=== PATIENT | female | born 1950 | race Asian ===

== ENCOUNTER 2020-09-16 20:17 | Emergency (ER) | payer BC ==
[~2020-09-16] VITALS: Ht 157.5 cm; Wt 53.5 kg
[2020-09-16 21:33] LABS: BASOPHILS % (AUTO) 0.4 % (0.0-2.0); EOSINOPHILS % (AUTO) 1.7 % (0.0-6.0); HEMATOCRIT 44 % (33-45); HEMOGLOBIN 14.6 g/dL (11.5-14.8); LYMPHOCYTES # (AUTO) 1.7 /CMM (0.8-4.8); LYMPHOCYTES % (AUTO) 21.2 % (20.0-44.0); MEAN CORPUSCULAR HGB CONC 33 g/dl (31.0-36.0); MEAN CORPUSCULAR VOLUME 91 fL (82-100); MONOCYTES # (AUTO) 0.6 /CMM (0.1-1.30); MONOCYTES % (AUTO) 7.8 % (2.0-12.0); NEUTROPHILS # (AUTO) 5.5 /CMM (1.8-8.9); NEUTROPHILS % (AUTO) 68.9 % (43.0-81.0); PLATELET COUNT (AUTO) 228 /CMM (150-450); RED BLOOD CELL COUNT(AUTO) 4.85 MIL/uL (4.0-5.2); WHITE BLOOD COUNT (AUTO) 8.1 K/uL (4.3-11.0)
[2020-09-16] MEDS ORDERED: ACETAMINOPHEN ES 500 MG TABLET ONE (21:34)
[2020-09-16] MEDS ORDERED: AMLODIPINE BESYLATE 5 MG TABLET ONE (21:35)
[2020-09-16] MEDS: AMLODIPINE BESYLATE 5 MG TABLET PO ONE (21:46)
[2020-09-16] MEDS: ACETAMINOPHEN ES 500 MG TABLET PO ONE (21:46)
--- NOTE | 2020-09-16 21:46 | NUR ---
SPOKE TO MD REGARDING PT'S BP AND HR. MD STATED TO HOLD AMLODIPINE.
[2020-09-16 21:49] LABS: CALCIUM, SERUM 9.1 mg/dL (8.5-10.1); CARBON DIOXIDE 29 mmol/L (21-32); CHLORIDE 96 mmol/L (98-107); CREATININE 0.7 mg/dL (0.6-1.3); GLUCOSE 101 mg/dL (74-106); SODIUM SERUM 133 mmol/L (136-145); UREA NITROGEN, BLOOD 14 mg/dL (7-18)
[2020-09-16] MEDS ORDERED: POTASSIUM CHLORIDE 20 MEQ TAB.PRT.SR PO ONE (21:58)
[2020-09-16 22:03] VITALS: BP 142/69
[2020-09-16] MEDS: POTASSIUM CHLORIDE 20 MEQ TAB.PRT.SR PO ONE (22:03)
--- NOTE | 2020-09-16 22:03 | NUR ---
Patient discharged to home in stable condition. Written and verbal after care instructions given. Patient verbalizes understanding of instruction. PT ambulated out of E.D. VSS. Denies pain,.
== END 2020-09-16 22:12 | disposition home or self-care (01) ==
LOC: ER 20:21
DX: I10 Essential (primary) hypertension (principal); M54.2 Cervicalgia
CPT/HCPCS: 36415; 80048-TC; 84484-TC; 85025-TC; 85730-TC

== ENCOUNTER 2020-12-25 11:27 | Emergency (ER) | payer BC ==
[~2020-12-25] VITALS: Ht 157.5 cm; Wt 54.4 kg
--- NOTE | 2020-12-25 11:38 | NUR ---
Patient is taken to ER bed #7. BIB daughter, patient c/o SOB since this morning, +covid november 2020, after davis got tested negative. patient is AAO x4. Denies pain. In room air and respiration is regular and unlabored. Patient is on monitor. Will continue to monitor.
--- NOTE | 2020-12-25 11:41 | NUR ---
Started IV line on rac g 18. Blood draw done and sent to the lab.
[2020-12-25 11:57] LABS: BASOPHILS % (AUTO) 0.4 % (0.0-2.0); EOSINOPHILS % (AUTO) 0.7 % (0.0-6.0); HEMATOCRIT 42 % (33-45); HEMOGLOBIN 14.3 g/dL (11.5-14.8); LYMPHOCYTES # (AUTO) 1.7 /CMM (0.8-4.8); LYMPHOCYTES % (AUTO) 25.4 % (20.0-44.0); MEAN CORPUSCULAR HGB CONC 34 g/dl (31.0-36.0); MEAN CORPUSCULAR VOLUME 88 fL (82-100); MONOCYTES # (AUTO) 0.4 /CMM (0.1-1.30); MONOCYTES % (AUTO) 6.4 % (2.0-12.0); NEUTROPHILS # (AUTO) 4.4 /CMM (1.8-8.9); NEUTROPHILS % (AUTO) 67.1 % (43.0-81.0); PLATELET COUNT (AUTO) 265 /CMM (150-450); RED BLOOD CELL COUNT(AUTO) 4.77 MIL/uL (4.0-5.2); WHITE BLOOD COUNT (AUTO) 6.6 K/uL (4.3-11.0)
[2020-12-25 12:08] LABS: ABG BASE EXCESS -0.1 mmol/L; ABG OXYGEN SATURATION 96.6 % (92.0-98.5); ABG PCO2 29.9 mmHg (35.0-45.0); ABG PH 7.488 (7.350-7.450); COHb 0.1 % (0.5-1.5); MetHb 0.3 % (0.0-1.5); O2Hb 96.2 % (94.0-97.0); SITE, ABG Right Radial; VENT MODE, BG RA
--- NOTE | 2020-12-25 12:08 | NUR ---
Covid swab done and taken to the lab.
--- NOTE | 2020-12-25 12:08 | NUR ---
Patient had chest x ray. Waiting for result.
[2020-12-25 13:02] LABS: ALANINE AMINOTRANSFERASE 33 U/L (12-78); ALBUMIN 4.1 g/dL (3.4-5.0); ALKALINE PHOSPHATASE 74 U/L (46-116); ASPARTATE AMINOTRANSFERASE 23 U/L (15-37); B-TYPE NATRIURETIC PEPTIDE 104 PG/ML (0-125); BILIRUBIN,TOTAL 0.5 mg/dL (0.2-1.0); CALCIUM, SERUM 9.2 mg/dL (8.5-10.1); CARBON DIOXIDE 27 mmol/L (21-32); CHLORIDE 97 mmol/L (98-107); GLUCOSE 214 mg/dL (74-106); SODIUM SERUM 135 mmol/L (136-145); TOTAL PROTEIN, SERUM 8.3 g/dL (6.4-8.2); UREA NITROGEN, BLOOD 14 mg/dL (7-18)
[2020-12-25 13:38] LABS: BILIRUBIN,DIRECT 0.1 mg/dL (0.0-0.2)
[2020-12-25] MEDS ORDERED: POTASSIUM CHLORIDE 20 MEQ TAB.PRT.SR PO ONE ×2 (14:00)
[2020-12-25 14:11] VITALS: BP 148/80
--- NOTE | 2020-12-25 14:11 | NUR ---
Patient a/ox4, breathing even and unlabored, no sob noted, needs attended. IV removed. Catheter intact and site benign. Pressure and 4x4 applied to site. No bleeding noted. Patient discharged to home in stable condition. Written and verbal after care instructions given. Patient verbalizes understanding of instruction.
== END 2020-12-25 14:12 | disposition home or self-care (01) ==
LOC: ER 11:27
DX: R06.02 Shortness of breath (principal); Z86.16 Personal history of COVID-19; I10 Essential (primary) hypertension
CPT/HCPCS: 36415; 36600; 71045; 80048; 80076; 83880; 84484; 85025; 85730; 87426; 93005; 99285; C9803